=== PATIENT | male | born 1970 | race Caucasian/White ===

== ENCOUNTER 2019-06-10 22:10 | Emergency (ER) | payer OTHER ==
[~2019-06-10] VITALS: Ht 175.3 cm; Wt 97.1 kg
[2019-06-10 22:21] VITALS: BP 164/95; Ht 175.3 cm; Wt 97.1 kg
== END 2019-06-10 23:51 | disposition left against medical advice (07) ==
LOC: ED 22:10
DX: Z53.21 Procedure and treatment not carried out due to patient leaving prior to being seen by health care provider (principal)